=== PATIENT | male | born 2000 | race Caucasian/White ===

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

== ENCOUNTER 2020-03-10 21:22 | Emergency (ER) | payer BC ==
[~2020-03-10] VITALS: Ht 182.9 cm; Wt 74.8 kg
[2020-03-10 21:30] VITALS: BP_SYST 135
[2020-03-10] MEDS: IBUPROFEN 800 MG TABLET PO ONE (23:56)
[2020-03-11 00:05] VITALS: BP_SYST 125
== END 2020-03-11 00:05 | disposition home or self-care (01) ==
LOC: SED 21:22
DX: S13.8XXA Sprain of joints and ligaments of other parts of neck, initial encounter (principal); R51 Headache; V49.69XA Unspecified car occupant injured in collision with other motor vehicles in traffic accident, initial encounter; Y93.89 Activity, other specified; Y92.411 Interstate highway as the place of occurrence of the external cause; Y99.8 Other external cause status
CPT/HCPCS: 70450-TC; 72125-TC; 99285